=== PATIENT | female | born 1985 | race African-American/Black ===

== ENCOUNTER 2022-02-16 16:30 | Emergency (ER) | payer OTHER ==
[2022-02-16 17:15] VITALS: BP 138/85; TEMP 98.1; BMI 32.1
[2022-02-16 17:22] VITALS: PULSE 78
== END 2022-02-16 18:31 | disposition home or self-care (01) ==
LOC: JER 16:30 → JERFT 16:30
DX: J01.90 Acute sinusitis, unspecified (principal)
CPT/HCPCS: 99283-25

== ENCOUNTER 2023-02-20 16:39 | Emergency (ER) | payer OTHER ==
[2023-02-20 16:54] VITALS: BP 143/72; PULSE 78; RESP 18; TEMP 98.6; BMI 34.0
== END 2023-02-20 17:30 | disposition home or self-care (01) ==
LOC: FER 16:39
DX: J01.90 Acute sinusitis, unspecified (principal); B99.9 Unspecified infectious disease; J30.2 Other seasonal allergic rhinitis; R09.81 Nasal congestion
CPT/HCPCS: 99283-25